=== PATIENT | female | born 1955 | race Caucasian/White ===

== ENCOUNTER → 2019-10-03 | Outpatient (REF) | payer OTHER, MEDICARE ==
[2019-10-03 16:31] LABS: BASO # 0.1 10^3/uL (0.0-0.2); BASO % 1.3 % (0.0-1.0); EOS # 0.3 10^3/uL (0.0-0.5); EOS % 3.5 % (0.0-3.0); HEMOGLOBIN 14.5 g/dl (12.0-15.5); LYMPH # 2.3 10^3/uL (1.5-5.0); LYMPH % 29.1 % (24.0-44.0); MEAN CORPUSCULAR HEMOGLOBIN 29.1 pg (27.0-33.0); MEAN CORPUSCULAR HGB CONC 33.7 g/dl (32.0-36.5); MEAN CORPUSCULAR VOLUME 86.2 fl (80.0-96.0); MONO # 0.6 10^3/uL (0.0-0.8); MONO % 7.1 % (0.0-5.0); NEUTROPHILS # 4.7 10^3/uL (1.5-8.5); NEUTROPHILS % 58.7 % (36.0-66.0); PLATELET COUNT, AUTOMATED 341 10^3/uL (150-450); RED BLOOD COUNT 4.99 10^6/uL (4.00-5.40); WHITE BLOOD COUNT 7.9 10^3/uL (4.0-10.0)
[2019-10-03 16:44] LABS: ALBUMIN 2.9 GM/DL (3.2-5.2); ALT/SGPT 24 U/L (12-78); BILIRUBIN,TOTAL 0.4 MG/DL (0.2-1.0); BLOOD UREA NITROGEN 24 MG/DL (7-18); CALCIUM LEVEL 9.3 MG/DL (8.8-10.2); CARBON DIOXIDE LEVEL 29 MEQ/L (21-32); CHLORIDE LEVEL 103 MEQ/L (98-107); CHOLESTEROL LEVEL 444 MG/DL (<200); CHOLESTEROL RISK RATIO 10.325 (<5); CREATININE FOR GFR 1.51 MG/DL (0.55-1.30); FREE T4 0.98 NG/DL (0.76-1.46); GLOMERULAR FILTRATION RATE 36.8 (>45); GLUCOSE, FASTING 178 MG/DL (70-100); HDL CHOLESTEROL 43 MG/DL (>40); NON-HDL-C 401 MG/DL; SODIUM LEVEL 137 MEQ/L (136-145); TOTAL PROTEIN 7.1 GM/DL (6.4-8.2); TRIGLYCERIDES LEVEL 570 MG/DL (<150)
[2019-10-03 16:46] LABS: TOTAL 25(OH) VITAMIN D 14.3 NG/ML (30.0-100.0)
[2019-10-03 16:48] LABS: HEMOGLOBIN A1c 13.7 %
== END ==
LOC: M LAB REF 16:07
PROVIDERS: ATTEND Physician Assistant
DX: R26.89 Other abnormalities of gait and mobility (principal); Z91.81 History of falling; Z95.5 Presence of coronary angioplasty implant and graft; E11.649 Type 2 diabetes mellitus with hypoglycemia without coma; Z68.28 Body mass index [BMI] 28.0-28.9, adult; E66.3 Overweight; I25.10 Atherosclerotic heart disease of native coronary artery without angina pectoris

== ENCOUNTER → 2020-04-05 | Outpatient (REF) | payer OTHER, MEDICARE ==
[2020-04-05 16:28] LABS: BASO # 0.1 10^3/uL (0.0-0.2); EOS # 0.3 10^3/uL (0.0-0.5); EOS % 3.1 % (0.0-3.0); HEMATOCRIT 38.7 % (36.0-47.0); HEMOGLOBIN 12.4 g/dl (12.0-15.5); LYMPH # 2.5 10^3/uL (1.5-5.0); LYMPH % 31.6 % (24.0-44.0); MEAN CORPUSCULAR HEMOGLOBIN 27.7 pg (27.0-33.0); MEAN CORPUSCULAR VOLUME 86.6 fl (80.0-96.0); MONO # 0.6 10^3/uL (0.0-0.8); MONO % 7.2 % (0.0-5.0); NEUTROPHILS # 4.6 10^3/uL (1.5-8.5); NEUTROPHILS % 56.9 % (36.0-66.0); PLATELET COUNT, AUTOMATED 328 10^3/uL (150-450); RED BLOOD COUNT 4.47 10^6/uL (4.00-5.40)
[2020-04-05 16:50] LABS: HEMOGLOBIN A1c 9.2 %
[2020-04-05 16:55] LABS: ALBUMIN 3.1 GM/DL (3.2-5.2); BILIRUBIN,TOTAL 0.3 MG/DL (0.2-1.0); CALCIUM LEVEL 9.1 MG/DL (8.8-10.2); CHOLESTEROL RISK RATIO 4.186 (<5); CREATININE FOR GFR 1.49 MG/DL (0.55-1.30); GLOMERULAR FILTRATION RATE 37.4 (>45); POTASSIUM SERUM 3.9 MEQ/L (3.5-5.1); TOTAL PROTEIN 6.5 GM/DL (6.4-8.2)
[2020-04-05 17:02] LABS: TOTAL 25(OH) VITAMIN D 20.7 NG/ML (30.0-100.0)
== END ==
LOC: M LAB REF 15:42
PROVIDERS: ATTEND Nurse Practitioner Family
DX: E11.65 Type 2 diabetes mellitus with hyperglycemia (principal)

== ENCOUNTER 2020-09-13 12:00 | Emergency (ER) | payer OTHER, MEDICARE ==
[~2020-09-13] VITALS: Ht 154.9 cm; Wt 61.8 kg
[2020-09-13] MEDS ORDERED: TRUL10IN (12:16)
[2020-09-13] MEDS ORDERED: METO100T5 (12:16)
[2020-09-13] MEDS ORDERED: ASPI1TAB22 (12:16)
[2020-09-13] MEDS ORDERED: BUPR150T5 (12:16)
[2020-09-13] MEDS ORDERED: HUMA100I5 (12:16)
[2020-09-13] MEDS ORDERED: ATOR80TA59 (12:16)
[2020-09-13] MEDS ORDERED: TRAZ-257 (12:16)
[2020-09-13] MEDS ORDERED: NS 1,000 ML IV ONE (14:15)
[2020-09-13 14:58] LABS: BASO # 0.1 10^3/uL (0.0-0.2); BASO % 1.1 % (0.0-1.0); EOS # 0.3 10^3/uL (0.0-0.5); EOS % 3.8 % (0.0-3.0); HEMATOCRIT 41.9 % (36.0-47.0); HEMOGLOBIN 14.1 g/dl (12.0-15.5); LYMPH # 2.2 10^3/uL (1.5-5.0); LYMPH % 30.3 % (24.0-44.0); MEAN CORPUSCULAR HEMOGLOBIN 28.7 pg (27.0-33.0); MEAN CORPUSCULAR HGB CONC 33.7 g/dl (32.0-36.5); MEAN CORPUSCULAR VOLUME 85.3 fl (80.0-96.0); MONO # 0.5 10^3/uL (0.0-0.8); MONO % 7.4 % (2.0-8.0); NEUTROPHILS # 4.1 10^3/uL (1.5-8.5); NEUTROPHILS % 57.1 % (36.0-66.0); PLATELET COUNT, AUTOMATED 309 10^3/uL (150-450); RED BLOOD COUNT 4.91 10^6/uL (4.00-5.40); VENOUS BASE EXCESS -1.8 (-2.0-2.0); VENOUS O2 SATURATION 72.1 % (60.0-80.0); VENOUS PARTIAL PRESSURE CO2 44.5 mmHg (38.0-50.0); VENOUS PARTIAL PRESSURE O2 39.1 mmHg (30.0-50.0); VENOUS PH 7.349 UNITS (7.330-7.430); VENOUS STANDARD HCO3 22.3 MEQ/L; VENOUS TOTAL CO2 25.3 MEQ/L (24.0-28.0); WHITE BLOOD COUNT 7.2 10^3/uL (4.0-10.0)
[2020-09-13 15:29] LABS: ACETONE/KETONE 7.45 MG/DL (<2.81); BILIRUBIN,DIRECT 0.1 MG/DL (0.0-0.2); BILIRUBIN,TOTAL 0.4 MG/DL (0.2-1.0); CALCIUM LEVEL 9.9 MG/DL (8.8-10.2); CREATININE FOR GFR 1.75 MG/DL (0.55-1.30); MAGNESIUM LEVEL 2.1 MG/DL (1.8-2.4); POTASSIUM SERUM 4.1 MEQ/L (3.5-5.1); TOTAL PROTEIN 6.8 GM/DL (6.4-8.2)
[2020-09-13] MEDS ORDERED: METOPROLOL TARTRATE 100 MG TAB PO ONE (17:05)
[2020-09-13 18:12] LABS: HEMOGLOBIN A1c 12.9 %
[2020-09-13 19:10] VITALS: BP 162/110
[2020-09-13] MEDS ORDERED: PROPARACAINE 0.5% OPHTH SOL 15ML OS ONE (19:15)
[2020-09-13] MEDS ORDERED: FLUORESCEIN OPHTH 1 MG STRIP OS ONE (19:15)
--- NOTE | 2020-09-14 17:54 | ECGEPIP ---
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
== END 2020-09-13 20:23 | disposition home or self-care (01) ==
LOC: M ED 12:00
DX: E11.65 Type 2 diabetes mellitus with hyperglycemia (principal); I12.9 Hypertensive chronic kidney disease with stage 1 through stage 4 chronic kidney disease, or unspecified chronic kidney disease; H40.059 Ocular hypertension, unspecified eye; R00.0 Tachycardia, unspecified; R74.8 Abnormal levels of other serum enzymes; Z91.19 Patient's noncompliance with other medical treatment and regimen; F33.9 Major depressive disorder, recurrent, unspecified; I25.10 Atherosclerotic heart disease of native coronary artery without angina pectoris; R39.81 Functional urinary incontinence; Z79.899 Other long term (current) drug therapy

== ENCOUNTER → 2020-09-30 | Outpatient (REF) | payer OTHER, MEDICARE ==
[~2020-09-30] MED LIST: ASPI1TAB22; ATOR80TA59; BUPR150T5; HUMA100I5; METO100T5; TRAZ-257; TRUL10IN
[2020-09-30 18:19] LABS: COMPLEMENT C3 134 MG/DL (90-180); COMPLEMENT C4 39 MG/DL (10-40); TOTAL PROTEIN 6.9 GM/DL (6.4-8.2)
[2020-09-30 18:22] LABS: BACTERIA, URINE AUTO NEGATIVE (NEGATIVE); MUCUS, URINE SMALL (NEGATIVE); RBC, URINE AUTO 1 /HPF (0-3); RENAL EPITHELIAL CELLS 1 /HPF; SQUAMOUS EPITHELIAL CELL UR AU 1 /HPF (0-6); WBC, URINE AUTO 18 /HPF (0-3)
[2020-09-30 18:28] LABS: HEPATITIS B SURFACE ANTIBODY POSITIVE (POSITIVE)
[2020-09-30 18:38] LABS: HEPATITIS B SURFACE ANTIGEN NEGATIVE (NEGATIVE)
[2020-09-30 19:06] LABS: HEPATITIS C VIRUS ABY INDEX < 0.0 INDEX (<0.8)
[2020-09-30 19:07] LABS: HEPATITIS B CORE ANTIBODY IGM NEGATIVE (NEGATIVE)
== END ==
LOC: M LAB REF 17:03
PROVIDERS: ATTEND Internal Medicine Nephrology
DX: N18.32 Chronic kidney disease, stage 3b (principal); R80.9 Proteinuria, unspecified

== ENCOUNTER → 2021-04-26 | Outpatient (REF) | payer OTHER, MEDICARE | LOC: M LAB REF 16:45 | PROVIDERS: ATTEND Internal Medicine Nephrology | DX: E83.42 Hypomagnesemia (principal) ==

== ENCOUNTER 2021-10-31 18:47 | Emergency (ER) | payer BC, MEDICARE ==
[~2021-10-31] VITALS: Ht 152.4 cm; Wt 68.2 kg
[~2021-10-31 18:47] MED LIST changes: +BUPR-71; -BUPR150T5
[2021-10-31] MEDS ORDERED: ASCO500T (19:05)
[2021-10-31] MEDS ORDERED: BASA100I (19:05)
[2021-10-31] MEDS ORDERED: ALER25CA (19:05)
[2021-10-31] MEDS ORDERED: CARV12.5 (19:05)
[2021-10-31] MEDS ORDERED: FERR324T21 (19:05)
[2021-10-31] MEDS ORDERED: FOLI1TAB11 (19:05)
[2021-10-31] MEDS ORDERED: ASPIRIN 81 MG CHEW TABLET PO ONE (19:35)
[2021-10-31 20:08] LABS: BASO # 0.2 10^3/uL (0.0-0.2); BASO % 1.7 % (0.0-1.0); EOS # 1.1 10^3/uL (0.0-0.5); EOS % 10.6 % (0.0-3.0); HEMATOCRIT 34.2 % (36.0-47.0); HEMOGLOBIN 11.2 g/dl (12.0-15.5); LYMPH # 2.6 10^3/uL (1.5-5.0); MEAN CORPUSCULAR HEMOGLOBIN 28.6 pg (27.0-33.0); MEAN CORPUSCULAR HGB CONC 32.7 g/dl (32.0-36.5); MEAN CORPUSCULAR VOLUME 87.2 fl (80.0-96.0); MONO # 0.8 10^3/uL (0.0-0.8); MONO % 7.7 % (2.0-8.0); NEUTROPHILS # 5.3 10^3/uL (1.5-8.5); PLATELET COUNT, AUTOMATED 363 10^3/uL (150-450); RED BLOOD COUNT 3.92 10^6/uL (4.00-5.40)
[2021-10-31 20:21] LABS: INR 1.06; PROTHROMBIN TIME 14.2 SECONDS (12.7-14.5)
[2021-10-31 20:27] LABS: CALCIUM LEVEL 8.9 MG/DL (8.8-10.2); CREATININE FOR GFR 2.31 MG/DL (0.55-1.30); GLOMERULAR FILTRATION RATE 22.4 (>45); POTASSIUM SERUM 3.4 MEQ/L (3.5-5.1)
[2021-10-31 21:15] VITALS: BP 130/69
== END 2021-10-31 21:58 | disposition home or self-care (01) ==
LOC: EDBD 18:47 → M ED 18:47
DX: M54.9 Dorsalgia, unspecified (principal); G89.29 Other chronic pain; E11.9 Type 2 diabetes mellitus without complications; I10 Essential (primary) hypertension

== ENCOUNTER 2021-11-18 18:43 | Emergency (ER) | payer OTHER, MEDICARE ==
[~2021-11-18 18:43] MED LIST changes: +ALER25CA; +ASCO500T; +BASA100I; +CARV12.5; +FERR324T21; +FOLI1TAB11
[2021-11-18 19:28] VITALS: BP 134/70
== END 2021-11-18 19:40 | disposition left against medical advice (07) ==
LOC: M ED 18:43 → EDBD 18:43 → M ED 19:40
DX: Z53.21 Procedure and treatment not carried out due to patient leaving prior to being seen by health care provider (principal)

== ENCOUNTER → 2022-04-13 | Outpatient (CLI) | payer BC, MEDICARE | LOC: M RAD 08:06 | PROVIDERS: ATTEND Internal Medicine Nephrology | DX: N18.6 End stage renal disease (principal) ==

== ENCOUNTER → 2022-05-16 | Outpatient (CLI) | payer BC, MEDICARE | LOC: M RAD 10:01 | PROVIDERS: ATTEND Surgery Vascular Surgery | DX: N18.6 End stage renal disease (principal) ==

== ENCOUNTER → 2022-06-20 | Outpatient (REF) | payer BC, MEDICARE ==
[2022-06-20 17:25] LABS: BASO # 0.1 10^3/uL (0.0-0.2); EOS # 0.3 10^3/uL (0.0-0.5); EOS % 5.3 % (0.0-3.0); HEMATOCRIT 37.7 % (36.0-47.0); HEMOGLOBIN 12.2 g/dl (12.0-15.5); LYMPH # 1.7 10^3/uL (1.5-5.0); LYMPH % 29.7 % (24.0-44.0); MEAN CORPUSCULAR HEMOGLOBIN 29.9 pg (27.0-33.0); MEAN CORPUSCULAR HGB CONC 32.4 g/dl (32.0-36.5); MEAN CORPUSCULAR VOLUME 92.4 fl (80.0-96.0); MONO # 0.5 10^3/uL (0.0-0.8); MONO % 8.6 % (2.0-8.0); NEUTROPHILS # 3.2 10^3/uL (1.5-8.5); NEUTROPHILS % 55.2 % (36.0-66.0); PLATELET COUNT, AUTOMATED 243 10^3/uL (150-450); RED BLOOD COUNT 4.08 10^6/uL (4.00-5.40); WHITE BLOOD COUNT 5.8 10^3/uL (4.0-10.0)
[2022-06-20 19:44] LABS: CREATININE FOR GFR 1.84 MG/DL (0.55-1.30); POTASSIUM SERUM 3.2 MMOL/L (3.5-5.1)
[2022-06-20 19:45] LABS: ALBUMIN 3.3 G/DL (3.2-5.2); BILIRUBIN,TOTAL 0.6 MG/DL (0.3-1.2); CALCIUM LEVEL 9.2 MG/DL (8.3-10.6); CHOLESTEROL RISK RATIO 5.48 (<5); HDL CHOLESTEROL 33.7 MG/DL (>40); LDL CHOLESTEROL 101.3 MG/DL (<100); TOTAL PROTEIN 6.4 G/DL (5.7-8.2)
[2022-06-20 21:00] LABS: HEMOGLOBIN A1c 6.4 % (4.0-6.0)
== END ==
LOC: M LAB REF 16:35
PROVIDERS: ATTEND Pediatrics
DX: E78.5 Hyperlipidemia, unspecified (principal)

== ENCOUNTER 2022-08-01 11:33 | Emergency (ER) | payer BC, MEDICARE ==
[~2022-08-01] VITALS: Ht 152.4 cm; Wt 62.5 kg
[2022-08-01] MEDS ORDERED: LIDOCAINE 2% 5ML JELLY UROJET TOP ONE (12:15)
[2022-08-01 12:26] LABS: BASO # 0.1 10^3/uL (0.0-0.2); BASO % 0.7 % (0.0-1.0); EOS # 0.5 10^3/uL (0.0-0.5); HEMATOCRIT 32.3 % (36.0-47.0); HEMOGLOBIN 10.6 g/dl (12.0-15.5); LYMPH # 2.6 10^3/uL (1.5-5.0); MEAN CORPUSCULAR HEMOGLOBIN 29.6 pg (27.0-33.0); MEAN CORPUSCULAR HGB CONC 32.8 g/dl (32.0-36.5); MEAN CORPUSCULAR VOLUME 90.2 fl (80.0-96.0); MONO # 0.7 10^3/uL (0.0-0.8); MONO % 8.6 % (2.0-8.0); NEUTROPHILS # 4.3 10^3/uL (1.5-8.5); NEUTROPHILS % 52.3 % (36.0-66.0); PLATELET COUNT, AUTOMATED 263 10^3/uL (150-450); RED BLOOD COUNT 3.58 10^6/uL (4.00-5.40); WHITE BLOOD COUNT 8.2 10^3/uL (4.0-10.0)
[2022-08-01 13:37] LABS: ALKALINE PHOSPHATASE 79 U/L (46-116); AST/SGOT 41 U/L (<34); BILIRUBIN,DIRECT < 0.1 MG/DL (<0.4); BILIRUBIN,TOTAL 0.3 MG/DL (0.3-1.2); CALCIUM LEVEL 8.6 MG/DL (8.3-10.6); CARBON DIOXIDE LEVEL 31 MMOL/L (20-31); CHLORIDE LEVEL 99 MMOL/L (98-107); GLUCOSE, FASTING 156 MG/DL (74-106); SODIUM LEVEL 137 MMOL/L (136-145); THYROID STIMULATING HORMONE 2.222 uIU/ML (0.55-4.78)
[2022-08-01 13:38] LABS: ALT/SGPT 19 U/L (7.0-40); BLOOD UREA NITROGEN 25 MG/DL (9-23); POTASSIUM SERUM 4.7 MMOL/L (3.5-5.1)
[2022-08-01 13:51] LABS: RSV AMPLIFICATION NEGATIVE (NEGATIVE)
[2022-08-01 15:12] LABS: TOTAL PROTEIN 6.3 G/DL (5.7-8.2)
[2022-08-01 15:52] LABS: APPEARANCE, URINE CLOUDY (CLEAR); BACTERIA, URINE AUTO 3+ (NEGATIVE); BILIRUBIN, URINE AUTO NEGATIVE (NEGATIVE); BLOOD, URINE BLOOD 1+ (NEGATIVE); COLOR, URINE YELLOW (YELLOW); GLUCOSE, URINE (UA) AUTO NEGATIVE (NEGATIVE); KETONE, URINE AUTO NEGATIVE (NEGATIVE); LEUKOCYTE ESTERASE, URINE AUTO 3+ (NEGATIVE); NITRITE, URINE AUTO NEGATIVE (NEGATIVE); PROTEIN, URINE AUTO 2+ mg/dL (NEGATIVE); RBC, URINE AUTO 0 /HPF (0-3); SPECIFIC GRAVITY URINE AUTO 1.005 (1.002-1.035); SQUAMOUS EPITHELIAL CELL UR AU 0 /HPF (0-6); UROBILINOGEN, URINE AUTO 0.2 mg/dL (0.0-2.0); WBC, URINE AUTO TNTC /HPF (0-3)
[2022-08-01 16:00] VITALS: BP 181/84
[2022-08-01] MEDS ORDERED: cefTRIAXone SOD 1 GM in D5W MINI-BAG PLUS 50 ML IV ONE (16:30)
[2022-08-01] MEDS ORDERED: CARVedilol 12.5 MG TAB PO ONE (17:35)
[2022-08-01 17:57] VITALS: BP 181/84
[2022-08-01] MEDS ORDERED: CEFD300C41 PO (18:11)
[2022-08-01 19:50] LABS: CREATININE FOR GFR 1.94 MG/DL (0.55-1.30); GLOMERULAR FILTRATION RATE 27.3 (>45)
== END 2022-08-01 18:47 | disposition home or self-care (01) ==
LOC: EDBD 11:33 → M ED 11:33
DX: N39.0 Urinary tract infection, site not specified (principal); E11.9 Type 2 diabetes mellitus without complications; I10 Essential (primary) hypertension; E78.5 Hyperlipidemia, unspecified; Z99.2 Dependence on renal dialysis; F32.9 Major depressive disorder, single episode, unspecified; Z87.440 Personal history of urinary (tract) infections; Z79.4 Long term (current) use of insulin; Z79.82 Long term (current) use of aspirin; Z79.899 Other long term (current) drug therapy
CPT/HCPCS: 51701; 70450; 71045; 80048; 80076; 81001; 82140; 84443; 85025; 87040; 87088; 87186; 87631; 93005; 93041; 94760; 96374; 99285; J0696